=== PATIENT | male | born 1965 | race Caucasian/White ===

== ENCOUNTER 2018-07-09 20:54 | Emergency (ER) | payer SELFPAY ==
[~2018-07-09] VITALS: Ht 177.8 cm; Wt 98.7 kg
[2018-07-09 21:06] VITALS: BP 185/113
== END 2018-07-09 21:37 | disposition home or self-care (01) ==
LOC: ED 21:34
DX: I83.91 Asymptomatic varicose veins of right lower extremity (principal); W22.8XXA Striking against or struck by other objects, initial encounter; Y93.89 Activity, other specified; Y99.8 Other external cause status; Y92.009 Unspecified place in unspecified non-institutional (private) residence as the place of occurrence of the external cause
CPT/HCPCS: 99283